=== PATIENT | female | born 1995 | race Caucasian/White ===

== ENCOUNTER 2023-02-21 23:17 | Emergency (ER) | payer BC ==
[~2023-02-21] VITALS: Ht 175.3 cm; Wt 118.2 kg
[2023-02-22 00:56] VITALS: BP 140/80
== END 2023-02-22 00:58 | disposition home or self-care (01) ==
LOC: ED 23:17
DX: S80.01XA Contusion of right knee, initial encounter (principal); W18.30XA Fall on same level, unspecified, initial encounter; X50.1XXA Overexertion from prolonged static or awkward postures, initial encounter
CPT/HCPCS: J1885; L1830

== ENCOUNTER → 2023-12-30 | Outpatient (CLI) | payer BC | LOC: RAD 10:27 | DX: M25.511 Pain in right shoulder (principal) ==